=== PATIENT | female | born 1955 | race Caucasian/White ===

== ENCOUNTER 2016-12-14 12:46 | Emergency (ER) | payer MEDICARE ==
[~2016-12-14] VITALS: Ht 154.9 cm; Wt 71.5 kg
[2016-12-14 12:56] VITALS: BP 158/95
== END 2016-12-14 14:00 | disposition home or self-care (01) ==
LOC: ED 13:42
DX: B35.4 Tinea corporis (principal); L02.414 Cutaneous abscess of left upper limb; I10 Essential (primary) hypertension; Z88.8 Allergy status to other drugs, medicaments and biological substances; F17.200 Nicotine dependence, unspecified, uncomplicated
CPT/HCPCS: 99283

== ENCOUNTER 2017-09-04 17:13 | Emergency (ER) | payer MEDICARE ==
[~2017-09-04] VITALS: Ht 167.6 cm; Wt 85.0 kg
[2017-09-04] MEDS ORDERED: LORazepam 2 MG/ML, 1ML ONE ×2 (17:39→18:05)
[2017-09-04] MEDS ORDERED: PLEASE ENTER HEIGHT AND WEIGHT MC SCH (18:00)
[2017-09-04] MEDS ORDERED: LORazepam 2 MG/ML, 1ML IM ONE ×2 (18:00→18:30)
[2017-09-04] MEDS ORDERED: ZIPRASIDONE 20 MG INJ IM ONE ×2 (18:05→18:30)
[2017-09-04 22:00] VITALS: BP 133/86
== END 2017-09-04 22:03 | disposition home or self-care (01) ==
LOC: ED 21:30
DX: F10.220 Alcohol dependence with intoxication, uncomplicated (principal); Y90.9 Presence of alcohol in blood, level not specified
CPT/HCPCS: 96372; 99284; J2060; J3486

== ENCOUNTER 2017-10-01 17:36 | Emergency (ER) | payer MEDICARE ==
[~2017-10-01] VITALS: Ht 154.9 cm; Wt 70.0 kg
[2017-10-01 17:45] VITALS: BP 171/100
[2017-10-01] MEDS ORDERED: KETOROLAC 30 MG/1 ML IVPush ONE (18:15)
[2017-10-01] MEDS ORDERED: LORazepam 2 MG/ML, 1ML IVPush ONE (18:15)
[2017-10-01] MEDS ORDERED: SODIUM CHLORIDE FLUSH 10ML SYR IVF ONE (18:30)
[2017-10-01] MEDS ORDERED: LORazepam 2 MG/ML, 1ML ONE (18:38)
[2017-10-01] MEDS ORDERED: KETOROLAC 30 MG/1 ML ONE (18:38)
[2017-10-01 18:53] LABS: TROPONIN I < 0.015 ng/mL (0.000-0.045)
[2017-10-01 19:10] LABS: MICROSCOPIC NOT IND
[2017-10-01 19:11] LABS: CULTURE INDICATED? NO
[2017-10-01 19:15] LABS: ANION GAP 11 mmol/L (5-15); CALCIUM 9.7 mg/dL (8.5-10.1); CHLORIDE 112 mmol/L (98-107)
[2017-10-01 19:21] LABS: MEAN CORPUSCULAR HGB CONC 34.2 g/dL (32.4-35.8); MEAN CORPUSCULAR VOLUME 90.7 fL (80-100); MEAN PLATELET VOLUME 8.7 fL (7.4-10.4); PLATELET COUNT 264 x10^3/uL (130-400); RED CELL DISTRIBUTION WIDTH 13.6 % (9.6-15.2)
[2017-10-01 19:31] LABS: BASOPHILS # (AUTO) 0.01 x10^3/uL (0-0.1); BASOPHILS % (AUTO) 0 % (0-1); EOSINOPHILS # (AUTO) 0.01 x10^3/uL (0-0.4); EOSINOPHILS % (AUTO) 0 % (1-7); LYMPHOCYTES % (AUTO) 10 % (22-44); MD SCAN; MONOCYTES # (AUTO) 0.03 x10^3/uL (0.2-0.8); MONOCYTES % (AUTO) 0 % (2-9); NEUTROPHILS # (AUTO) 6.85 x10^3/uL (1.8-6.8); NEUTROPHILS % (AUTO) 89 % (42-75)
== END 2017-10-01 20:47 | disposition home or self-care (01) ==
LOC: ED 20:00
DX: M51.16 Intervertebral disc disorders with radiculopathy, lumbar region (principal); I10 Essential (primary) hypertension; F10.20 Alcohol dependence, uncomplicated; Z88.0 Allergy status to penicillin; Z87.891 Personal history of nicotine dependence; Z23 Encounter for immunization; Z98.1 Arthrodesis status; Z88.8 Allergy status to other drugs, medicaments and biological substances
CPT/HCPCS: 36415; 71045; 72148; 80048; 81003; 82040; 83880; 84484; 85025; 93005; 96374; 96375; 99285; J1885; J2060

== ENCOUNTER 2017-11-01 10:57 | Emergency (ER) | payer MEDICARE ==
[~2017-11-01] VITALS: Ht 154.9 cm; Wt 68.0 kg
[2017-11-01] MEDS ORDERED: HYDROcodone/APAP 5/325 TABLET ONE (11:11)
[2017-11-01] MEDS ORDERED: HYDROcodone/APAP 5/325 TABLET PO PRN (11:30)
[2017-11-01 12:56] VITALS: BP 160/91
== END 2017-11-01 14:00 | disposition home or self-care (01) ==
LOC: ED 11:46
DX: S92.322A Displaced fracture of second metatarsal bone, left foot, initial encounter for closed fracture (principal); S92.332A Displaced fracture of third metatarsal bone, left foot, initial encounter for closed fracture; S92.342A Displaced fracture of fourth metatarsal bone, left foot, initial encounter for closed fracture; R00.0 Tachycardia, unspecified; W01.0XXA Fall on same level from slipping, tripping and stumbling without subsequent striking against object, initial encounter; Y93.89 Activity, other specified; Y92.096 Garden or yard of other non-institutional residence as the place of occurrence of the external cause; Y99.8 Other external cause status
CPT/HCPCS: 29515; 93005; 99284